=== PATIENT | male | born 2005 | race Caucasian/White ===

== ENCOUNTER 2024-02-07 18:33 | Emergency (ER) | payer OTHER ==
[~2024-02-07] VITALS: Ht 188 cm; Wt 88.8 kg
[2024-02-07 20:22] LABS: APPEARANCE, URINE CLEAR (CLEAR); BACTERIA, URINE AUTO NEGATIVE (NEGATIVE); BILIRUBIN, URINE AUTO NEGATIVE (NEGATIVE); BLOOD, URINE BLOOD NEGATIVE (NEGATIVE); COLOR, URINE COLORLESS (YELLOW); GLUCOSE, URINE (UA) AUTO NEGATIVE (NEGATIVE); KETONE, URINE AUTO NEGATIVE (NEGATIVE); LEUKOCYTE ESTERASE, URINE AUTO NEGATIVE (NEGATIVE); NITRITE, URINE AUTO NEGATIVE (NEGATIVE); PROTEIN, URINE AUTO NEGATIVE (NEGATIVE); RBC, URINE AUTO 0 /HPF (0-3); SPECIFIC GRAVITY URINE AUTO 1.004 (1.002-1.035); SQUAMOUS EPITHELIAL CELL UR AU 0 /HPF (0-6); UROBILINOGEN, URINE AUTO 0.2 mg/dL (0.0-2.0); WBC, URINE AUTO 0 /HPF (0-3)
[2024-02-07 21:03] LABS: Trichomonas vaginalis (AMP) NOT DETECTED (NEGATIVE)
[2024-02-07 21:26] LABS: GC DNA AMPLIFICATION NEGATIVE (NEGATIVE)
[2024-02-07] MEDS ORDERED: BACT800T5 PO (22:30)
[2024-02-07 22:31] VITALS: BP 139/81; TEMP 97.3; O2SAT 99
== END 2024-02-07 22:35 | disposition home or self-care (01) ==
LOC: M ED 18:33
DX: N41.0 Acute prostatitis (principal)